=== PATIENT | male | born 1935 | race Caucasian/White ===

== ENCOUNTER 2018-07-29 09:04 | Emergency (ER) | payer MEDICARE ==
[2018-07-29 09:11] VITALS: RESP 18; TEMP 97.8
[2018-07-29] MEDS ORDERED: KETOROLAC 60 MG/2 ML VIAL IM STA (09:21)
[2018-07-29] MEDS ORDERED: HYDROmorphone 1 MG/ML 1 ML SYRINGE IM STA (09:21)
--- NOTE | 2018-07-29 09:25 | ED ---
General Adult HPI - General Chief complaint: Extremity Injury, Lower Stated complaint: R leg pain Source: patient, family, RN notes reviewed Mode of arrival: ambulatory Limitations: no limitations - History of Present Illness Initial comments: Patient is a pleasant 83-year-old male presenting to the emergency Department with complaints of right hip pain. Onset of symptoms was close to 2 weeks ago. Patient stepped on a stone. Patient had discomfort radiating up his leg. Discomfort became significantly worse 2 nights ago. Discomfort is mild at rest but severe with movement. Patient has difficulty walking. No weakness. No back pain. Discomfort is right lateral hip. No rash. No fevers. No history of similar symptoms previously. - Related Data Home Medications Medication Instructions Recorded Confirmed Atorvastatin [Lipitor] 40 mg PO DAILY 07/29/18 07/29/18 Cholecalciferol [Vitamin D3] 1,000 unit PO DAILY 07/29/18 07/29/18 Glimepiride [Amaryl] 1 mg PO AC-BRKFST 07/29/18 07/29/18 Insulin Glargine,Hum.rec.anlog 60 unit SQ HS 07/29/18 07/29/18 [Lantus Solostar] Liraglutide [Victoza 2-Rigoberto] 0.6 mg SQ DAILY 07/29/18 07/29/18 Lisinopril [Zestril] 20 mg PO DAILY 07/29/18 07/29/18 [place]-3 Fatty Acids/Fish Oil [Fish 1 cap PO DAILY 07/29/18 07/29/18 Oil 1,000 mg Softgel] Saw [place] 160 mg PO DAILY 07/29/18 07/29/18 predniSONE See Taper PO DAILY 07/29/18 07/29/18 Previous Rx's Medication Instructions Recorded Cyclobenzaprine [Flexeril] 10 mg PO TID PRN #12 tablet 07/29/18 Ibuprofen [Motrin] 600 mg PO Q6HR PRN #20 tab 07/29/18 Allergies Allergy/AdvReac Type Severity Reaction Status Date / Time No Known Allergies Allergy Verified 07/29/18 09:28 Review of Systems ROS Statement: Those systems with pertinent positive or pertinent negative responses have been documented in the HPI. ROS Other: All systems not noted in ROS Statement are negative. Constitutional: Denies: fever, chills Eyes: Denies: eye pain ENT: Denies: ear pain Respiratory: Denies: cough Cardiovascular: Denies: chest pain Endocrine: Denies: fatigue Gastrointestinal: Denies: abdominal pain Genitourinary: Denies: dysuria Musculoskeletal: Reports: arthralgia. Denies: back pain, joint swelling Skin: Denies: rash Neurological: Denies: weakness Past Medical History Past Medical History: Diabetes Mellitus, Hyperlipidemia, Hypertension History of Any Multi-Drug Resistant Organisms: None Reported Past Surgical History: Bowel Resection, Orthopedic Surgery Past Psychological History: No Psychological Hx Reported Smoking Status: Former smoker Past Alcohol Use History: None Reported Past Drug Use History: None Reported General Exam Limitations: no limitations General appearance: alert, in no apparent distress Head exam: Present: atraumatic Eye exam: Present: normal appearance, PERRL ENT exam: Present: normal oropharynx Neck exam: Present: normal inspection Respiratory exam: Present: normal lung sounds bilaterally Cardiovascular Exam: Present: regular rate, normal rhythm Expanded Peripheral pulses: 2+: Posterior Tibialis (R), Dorsalis Pedis (R) GI/Abdominal exam: Present: soft. Absent: tenderness Extremities exam: Present: normal inspection. Absent: tenderness, calf tenderness Right Hip exam: Present: full ROM (Passive range of motion without discomfort. Active range of motion is very limited by pain). Absent: tenderness, swelling, ecchymosis, deformity, erythema Knee exam: Present: normal inspection, full ROM. Absent: tenderness, swelling Lower Leg exam: Present: normal inspection Ankle exam: Present: normal inspection Foot/Toe exam: Present: normal inspection Back exam: Present: normal inspection. Absent: tenderness, vertebral tenderness Neurological exam: Present: alert. Absent: motor sensory deficit Psychiatric exam: Present: normal affect, normal mood Skin exam: Absent: rash Course Vital Signs 07/29/18 07/29/18 09:04 11:50 Temperature 97.8 F Pulse Rate 74 63 Respiratory 18 18 Rate Blood Pressure 163/84 137/65 O2 Sat by Pulse 94 L 94 L Oximetry Medical Decision Making - Radiology Data Radiology results: report reviewed (Ultrasound negative for DVT), image reviewed (X-ray of the right hip and pelvis shows no acute abnormality. There is some soft tissue edema anterior to the right patella) Disposition Clinical Impression: Hip strain Disposition: HOME SELF-CARE Condition: Stable Instructions: Hip Sprain (ED) Additional Instructions: Please follow-up with primary care physician and orthopedics in the next day or 2 for recheck. Return for fever, redness, swelling, increased pain, weakness, unable to walk, worsening or changing symptoms or other concerns. Prescriptions: Cyclobenzaprine [Flexeril] 10 mg PO TID PRN #12 tablet PRN Reason: Pain Ibuprofen [Motrin] 600 mg PO Q6HR PRN #20 tab PRN Reason: Pain Is patient prescribed a controlled substance at d/c from ED?: No Referrals: Aracelis Baez DO [Primary Care Provider] - 1-2 days Time of Disposition: 12:31
--- NOTE | 2018-07-29 10:22 | XR ---
EXAMINATION TYPE: XR femur RT DATE OF EXAM: 07/29/2018 COMPARISON: NONE HISTORY: Pain TECHNIQUE: 4 views submitted FINDINGS: There is a large soft tissue density anterior to the patella. Arthropathy of the hip joint. Vascular calcification seen. No definite acute fracture. Arthropathy of the knee joint. IMPRESSION: 1. Large area of soft tissue edema anterior to the patella correlate clinically. 2. No definite acute fracture.
--- NOTE | 2018-07-29 10:46 | XR ---
EXAMINATION TYPE: XR pelvis AP view DATE OF EXAM: 07/29/2018 CLINICAL HISTORY: Pain after injury. TECHNIQUE: A single AP view of the pelvis is obtained. COMPARISON: None. FINDINGS: There is no acute fracture/dislocation evident in the pelvis. There is moderate axial join t space loss in both hips with superior acetabular flattening and mild spurring. Sacroiliac joints a re maintained bilaterally. Vascular calcification of overlying pelvis is noted. IMPRESSION: There is no acute fracture or dislocation in the pelvis.
[2018-07-29] MEDS ORDERED: ORPHENADRINE 30 MG/ML 2 ML VIAL IM STA (11:01)
[2018-07-29 11:52] VITALS: BP 137/65; PULSE 63
--- NOTE | 2018-07-29 12:06 | US ---
EXAMINATION TYPE: US venous doppler duplex LE RT DATE OF EXAM: 07/29/2018 11:53 AM COMPARISON: NONE CLINICAL HISTORY: Pain. Right leg pain for 2 weeks that has gotten worse the last 2 days, patient zacarias ble to walk due to pain SIDE PERFORMED: Right TECHNIQUE: The lower extremity deep venous system is examined utilizing real time linear array sonog casa with graded compression, doppler sonography and color-flow sonography. VESSELS IMAGED: External Iliac Vein (EIV) Common Femoral Vein Deep Femoral Vein Greater Saphenous Vein * Femoral Vein Popliteal Vein Small Saphenous Vein * Proximal Calf Veins (* superficial vessels) Right Leg: No evidence of DVT as visualized Grayscale, color doppler, spectral doppler imaging performed of the deep veins of the right lower ext remity. There is normal flow, compressibility, vascular waveforms. IMPRESSION: No ultrasound evidence for acute DVT in the right lower extremity.
== END 2018-07-29 13:07 | disposition home or self-care (01) ==
LOC: EC 09:04
DX: S76.011A Strain of muscle, fascia and tendon of right hip, initial encounter (principal); M79.604 Pain in right leg; E11.9 Type 2 diabetes mellitus without complications; E78.5 Hyperlipidemia, unspecified; I10 Essential (primary) hypertension; Z87.891 Personal history of nicotine dependence; Z79.4 Long term (current) use of insulin; Z79.899 Other long term (current) drug therapy; Z79.52 Long term (current) use of systemic steroids
CPT/HCPCS: 99284 ×2; 96372 ×4; 72170; 73552; 93971; J2360; J1885; J1170

== ENCOUNTER → 2018-08-01 | Outpatient (CLI) | payer MEDICARE ==
--- NOTE | 2018-08-01 14:57 | CT ---
EXAMINATION TYPE: CT lumbar spine wo con DATE OF EXAM: 08/01/2018 COMPARISON: HISTORY: lower back pain/bilateral leg pain CT DLP: 1330.[address] of the lumbar spine was performed. Bone and soft tissue window settings are submitted as well as coronal and sagittal reconstructions. L1-L2: Vacuum disc noted. Circumferential disc bulge. Mild effacement ventral thecal sac. No herniati on or central stenosis. L2-L3: Vacuum disc noted. Circumferential disc bulge. Hypertrophy of the ligamentum flavum and facet joint arthropathy resulting in moderate central stenosis. No jennyfer disc herniation seen. Bilateral fo raminal encroachment. L3-L4: Vacuum disc noted. Circumferential disc bulge. Hypertrophy of the ligamentum flavum and facet joint arthropathy resulting in moderate central stenosis. No jennyfer disc herniation seen. Bilateral fo raminal encroachment. L4-L5: Vacuum disc noted. Circumferential disc bulge. Hypertrophy of the ligamentum flavum and facet joint arthropathy resulting in moderate central stenosis. No jennyfer disc herniation seen. Bilateral fo raminal encroachment. L5-S1: Circumferential disc bulge. Hypertrophy of the ligamentum flavum and facet joint arthropathy resulting in moderate central stenosis. No jennyfer disc herniation seen. Bilateral foraminal encroachme nt. No paraspinal masses are identified. Lumbar segments are free if fracture. IMPRESSION: 1. Multilevel central stenosis with multilevel vacuum disc is noted.
== END | disposition home or self-care (01) ==
LOC: RADCTMAIN 14:02
PROVIDERS: ATTEND Physical Medicine & Rehabilitation
DX: M48.062 Spinal stenosis, lumbar region with neurogenic claudication (principal); E11.9 Type 2 diabetes mellitus without complications; I10 Essential (primary) hypertension
CPT/HCPCS: 72131

== ENCOUNTER → 2018-10-03 | Outpatient (CLI) | payer MEDICARE ==
--- NOTE | 2018-10-03 11:49 | CT ---
EXAMINATION TYPE: CT angio abdomen DATE OF EXAM: 10/03/2018 COMPARISON: CT lumbar spine August 01, 2018. HISTORY: Aortic dissection. Abnormal MRI, 4.1 cm aneurysm per patient family. Right leg pain x [address] DLP: 1867.5 mGycm, Automated Exposure Control for Dose Reduction was Utilized. CONTRAST: CTA scan of the abdomen is performed without oral and without and with IV Contrast, patient injected with 100 mL of Isovue 370. Three-D reconstructed images are created on independent workstation and re viewed. FINDINGS: VASCULAR: The main pulmonary artery measures 3.3 cm at bifurcation, axial image 3, CT findings sugges ting underlying pulmonary artery hypertension. Adjacent ascending aorta measures up to 4.3 cm in diam eter same image. There is ectatic course with mild peripheral plaque in the descending thoracic aorta . There is patent celiac access, SMA, bilateral single renal arteries, and LUIS identified. There is p atency into the common iliac artery branches bilaterally with some ectasia of the distal left common iliac artery noted. There is aneurysmal change of the infrarenal abdominal aorta over roughly 6 cm se gment coronal image 25 measuring 3.9 x 4.0 cm transversely axial image 61 with prominent noncalcified plaque occupying left half of lumen. Stenosis roughly 50% is noted. Noncontrast images show subtle c urvilinear slightly hyperdense area axial image 62 along the left aspect consistent with small focal intramural hematoma. (Is slightly more chronic in age as Hounsfield units average 46 versus adjacent aorta measuring 42. There is moderate plaque through iliac branching without significant stenosis. LUNG BASES: Coronary artery calcification is present which is noted marker for coronary artery diseas e. Dependent atelectasis is seen in both bases. LIVER/GB: Dependent small calcified gallstones are seen in gallbladder. PANCREAS: Mild fat replaced atrophy of pancreas is seen. SPLEEN: No significant abnormality is seen. ADRENALS: No significant abnormality is seen. KIDNEYS: There is single nonobstructing 2 mm calculus lower pole left kidney coronal image 70 and 2-3 small calculi measuring 2 mm or smaller scattered throughout the right kidney. No hydronephrosis or obstructing ureter calculi are clearly seen bilaterally. Enlarged prostate gland bulges on bladder ba se, correlate for BPH BOWEL: Normal-appearing appendix is seen from cecum. No suspicious small or large bowel dilatation is present. LYMPH NODES: No greater than 1cm abdominal lymph nodes are appreciated. OSSEOUS STRUCTURES: Moderate multilevel spurring in the thoracic spine is present. OTHER: No significant additional abnormality is seen. 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 There is no evidence of aortic dissection but presence of small focal left lateral intramural hematoma is noted on noncontrast CT.
== END | disposition home or self-care (01) ==
LOC: RADCTMAIN 09:55
PROVIDERS: ATTEND Family Medicine
DX: I71.4 Abdominal aortic aneurysm, without rupture (principal); I70.0 Atherosclerosis of aorta
CPT/HCPCS: 82565; 84520; 74175; 36415; Q9967

== ENCOUNTER 2018-11-17 06:13 | Emergency (ER) | payer MEDICARE ==
[2018-11-17 06:24] VITALS: RESP 18
[2018-11-17] MEDS ORDERED: DEXTROSE 50%-WATER 50 ML SYRINGE IVP STA (06:40)
[2018-11-17 07:13] LABS: Glucose,Whole Blood 161 mg/dL (75-99)
[2018-11-17 07:13] LABS: Glucose,Whole Blood 38 mg/dL (75-99)
--- NOTE | 2018-11-17 07:31 | ED ---
General Adult HPI - General Chief complaint: Altered Mental Status Stated complaint: Hypoglycemia Source: patient, family, RN notes reviewed Mode of arrival: EMS Limitations: physical limitation - History of Present Illness Initial comments: Patient is a pleasant 83-year-old male presenting to the emergency Department with confusion. Patient did have blood sugar of 317 last night. Patient did take an extra dose of his new insulin. Patient states he is only taking this a couple times previously. This morning patient was acting abnormal. Patient was drowsy and had slurred speech. Patient also had some foot discomfort. Patient does have chronic leg discomfort the past several months which has previously been attributed to back problems and neuropathy. Patient was found to have blood sugar of 38. Patient was given an amp of D50 with resolution of symptoms. Patient feels symptom-free at this time. - Related Data Home Medications Medication Instructions Recorded Confirmed Atorvastatin [Lipitor] 40 mg PO DAILY 07/29/18 11/17/18 Glimepiride [Amaryl] 2 mg PO AC-SUPPER 07/29/18 11/17/18 Insulin Glargine,Hum.rec.anlog 64 unit SQ HS 07/29/18 11/17/18 [Lantus Solostar] Lisinopril [Zestril] 20 mg PO DAILY 07/29/18 11/17/18 Cholecalciferol [Vitamin D3] 400 unit PO DAILY 11/17/18 11/17/18 Fish Oil/Dha/Epa [Fish Oil 1,200 1 cap PO DAILY 11/17/18 11/17/18 mg Fish Oil] Liraglutide [Victoza 3-Rigoberto] 0.6 mg SQ DAILY PRN 11/17/18 11/17/18 [place] 500 mg PO DAILY 11/17/18 11/17/18 Allergies Allergy/AdvReac Type Severity Reaction Status Date / Time No Known Allergies Allergy Verified 11/17/18 06:36 Review of Systems ROS Statement: Those systems with pertinent positive or pertinent negative responses have been documented in the HPI. ROS Other: All systems not noted in ROS Statement are negative. Constitutional: Denies: fever Eyes: Denies: eye pain ENT: Denies: ear pain Respiratory: Denies: cough Cardiovascular: Denies: chest pain Endocrine: Denies: fatigue Gastrointestinal: Denies: abdominal pain Genitourinary: Denies: dysuria Musculoskeletal: Denies: back pain (Patient has no back pain. Patient has leg pain that is attributed to his back) Skin: Denies: rash Neurological: Reports: as per HPI Past Medical History Past Medical History: Diabetes Mellitus, Hyperlipidemia, Hypertension History of Any Multi-Drug Resistant Organisms: None Reported Past Surgical History: Bowel Resection, Orthopedic Surgery Past Psychological History: No Psychological Hx Reported Smoking Status: Former smoker Past Alcohol Use History: None Reported Past Drug Use History: None Reported General Exam Limitations: no limitations General appearance: alert, in no apparent distress Head exam: Present: atraumatic Eye exam: Present: normal appearance, PERRL, EOMI ENT exam: Present: normal oropharynx Neck exam: Present: normal inspection Respiratory exam: Present: normal lung sounds bilaterally Cardiovascular Exam: Present: regular rate, normal rhythm GI/Abdominal exam: Present: soft. Absent: tenderness Extremities exam: Present: normal inspection. Absent: pedal edema, calf tenderness Neurological exam: Present: alert, CN II-XII intact. Absent: motor sensory deficit Expanded Neurological exam: Present: protecting the airway Patient oriented to: Present: person, place, time (Patient is oriented to month but not year) Speech: Present: fluid speech Cranial nerves: EOM's Intact: Normal Motor strength exam: RUE: 5, LUE: 5, RLE: 5, LLE: 5 Psychiatric exam: Present: normal affect, normal mood Skin exam: Present: normal color Course Vital Signs 11/17/18 11/17/18 06:17 06:42 Temperature 98.0 F Pulse Rate 81 66 Respiratory 18 18 Rate Blood Pressure 140/90 142/86 O2 Sat by Pulse 92 L 97 Oximetry EKG Findings - EKG Comments: EKG Findings:: Normal sinus rhythm 80. OK 162. QRS 88. QT 398. QTC 459. Normal axis. Normal QRS. No acute ST change. Medical Decision Making - Medical Decision Making Patient requesting discharge. Patient remains alert and appropriate. Family members 3 are present and all feel that patient is acting normal. Patient is advised to follow-up with his doctor as soon as possible regarding insulin dosing. Patient is advised to discontinue his new Medication and decrease his Lantus evening dose by 10. - Lab Data Lab Results 11/17/18 11/17/18 Range/Units 06:15 06:29 POC Glucose (mg/dL) 38 L 161 H (75-99) mg/dL POC Glu Insulation Cupola Operator ID Milena Carnes Alisha Disposition Clinical Impression: Hypoglycemia Disposition: HOME SELF-CARE Condition: Stable Instructions: Hypoglycemia in a Person with Diabetes (ED) Additional Instructions: Please follow-up with your doctor in the next day or 2 for recheck and further advising. Please discontinue your new insulin. Decrease evening dose of Lantus by 10 until further advised by your primary care doctor. Return for weakness, confusion, uncontrolled blood sugar, worsening or changing symptoms or other concerns. Is patient prescribed a controlled substance at d/c from ED?: No Referrals: Aracelis Baez DO [Primary Care Provider] - 1-2 days Time of Disposition: 08:42
[2018-11-17 09:46] VITALS: BP 110/79; PULSE 82; TEMP 97.9
[2018-11-17 16:42] LABS: Glucose,Whole Blood 101 mg/dL (75-99)
== END 2018-11-17 10:15 | disposition home or self-care (01) ==
LOC: EC 06:13
DX: E11.649 Type 2 diabetes mellitus with hypoglycemia without coma (principal); E78.5 Hyperlipidemia, unspecified; I10 Essential (primary) hypertension; Z79.4 Long term (current) use of insulin; Z79.899 Other long term (current) drug therapy; Z87.891 Personal history of nicotine dependence
CPT/HCPCS: 36415; 96374; 99285

== ENCOUNTER 2022-10-19 14:59 | Emergency (ER) | payer MEDICARE ==
[2022-10-19 15:12] VITALS: RESP 18
[2022-10-19] MEDS ORDERED: DIPH,PERTUS(ACELL)TETVAC-LF 0.5 ML VIAL IM ONE (15:20)
--- NOTE | 2022-10-19 15:28 | ED ---
Fall HPI - General Source: patient, RN notes reviewed Mode of arrival: wheelchair Limitations: no limitations <Pato Edwards - Last Filed: 10/19/22 15:27> <Kourtney Choudhury - Last Filed: 10/19/22 19:54> - General Chief Complaint: Fall Stated Complaint: Fall on thinners Time Seen by Provider: 10/19/22 15:15 - History of Present Illness Initial Comments: This is an 87-year-old male presents emergency Department with chief complaint of trip and fall. Patient states he lost his balance and stepped states that he did strike his face he did not fall down the steps. Patient states he does not take any blood thinners. Patient complains of facial abrasions, lacerations on the right and left cheek is unsure when his last tetanus was. He denies any blood thinners denies any significant headache as mild facial pain. Denies any upper or lower extremity injury or trauma noted. (Pato Edwards) - Related Data Home Medications Medication Instructions Recorded Confirmed Atorvastatin [Lipitor] 40 mg PO DAILY 07/29/18 11/17/18 Glimepiride [Amaryl] 2 mg PO AC-SUPPER 07/29/18 11/17/18 Insulin Glargine,Hum.rec.anlog 64 unit SQ HS 07/29/18 11/17/18 [Lantus Solostar] lisinopriL [Zestril] 20 mg PO DAILY 07/29/18 11/17/18 Cholecalciferol [Vitamin D3] 400 unit PO DAILY 11/17/18 11/17/18 Fish Oil/Dha/Epa [Fish Oil 1,200 1 cap PO DAILY 11/17/18 11/17/18 mg Fish Oil] Liraglutide [Victoza 3-Rigoberto] 0.6 mg SQ DAILY PRN 11/17/18 11/17/18 Saw [place] 500 mg PO DAILY 11/17/18 11/17/18 Allergies Allergy/AdvReac Type Severity Reaction Status Date / Time No Known Allergies Allergy Verified 10/19/22 15:12 Review of Systems ROS Other: All systems not noted in ROS Statement are negative. <Pato Edwards - Last Filed: 10/19/22 15:27> ROS Other: All systems not noted in ROS Statement are negative. <Kourtney Choudhury - Last Filed: 10/19/22 19:54> ROS Statement: Those systems with pertinent positive or pertinent negative responses have been documented in the HPI. Past Medical History Past Medical History: Diabetes Mellitus, Hyperlipidemia, Hypertension History of Any Multi-Drug Resistant Organisms: None Reported Past Surgical History: Bowel Resection, Orthopedic Surgery Past Psychological History: No Psychological Hx Reported Past Alcohol Use History: None Reported Past Drug Use History: None Reported <Pato Edwards - Last Filed: 10/19/22 15:27> General Exam Limitations: no limitations General appearance: alert, in no apparent distress Head exam: Present: atraumatic, normocephalic, normal inspection Eye exam: Present: normal appearance, PERRL, EOMI. Absent: scleral icterus, conjunctival injection, periorbital swelling ENT exam: Present: normal oropharynx, mucous membranes moist, TM's normal bilaterally, normal external ear exam, other (Right and left facial abrasion/lacerations). Absent: normal exam Neck exam: Present: normal inspection, full ROM. Absent: tenderness, meningismus, lymphadenopathy Respiratory exam: Present: normal lung sounds bilaterally. Absent: respiratory distress, wheezes, rales, rhonchi, stridor Cardiovascular Exam: Present: normal rhythm, tachycardia, normal heart sounds. Absent: systolic murmur, diastolic murmur, rubs, gallop, clicks GI/Abdominal exam: Present: soft, normal bowel sounds. Absent: distended, tenderness, guarding, rebound, rigid Neurological exam: Present: alert, oriented X3, CN II-XII intact, reflexes normal. Absent: motor sensory deficit <Pato Edwards - Last Filed: 10/19/22 15:27> Course Vital Signs 10/19/22 10/19/22 15:07 18:31 Temperature 97.6 F 97.8 F Pulse Rate 102 H 82 Respiratory 18 18 Rate Blood Pressure 134/86 133/74 O2 Sat by Pulse 93 L 94 L Oximetry Procedures - Laceration Laceration #1 Consent Obtained: verbal consent Indication: laceration Site: face Size (cm): 2 Description: irregular Anesthetic Used: lidocaine 1% Anesthesia Technique: local infiltration Pre-repair: wound explored, irrigated extensively Type of Sutures: nylon Size of Sutures: 5-0 Number of Sutures: 2 Technique: simple, interrupted Patient Tolerated Procedure: well, no complications Laceration #2 Consent Obtained: verbal consent Indication: laceration Site: face Size (cm): 2 Description: irregular Anesthetic Used: lidocaine 1% Anesthesia Technique: local infiltration Pre-repair: wound explored, irrigated extensively Type of Sutures: nylon Size of Sutures: 5-0 Number of Sutures: 2 Technique: simple, interrupted Patient Tolerated Procedure: well, no complications <MaceyKourtney - Last Filed: 10/19/22 19:54> Medical Decision Making <MaceyKourtney - Last Filed: 10/19/22 19:54> - Medical Decision Making This is an 87-year-old male presenting after fall. Patient asymptomatic, takes a baby aspirin otherwise no blood thinner use. CT of the brain and C-spine without contrast was obtained which shows no acute intracranial process and no evidence of cervical spine fracture. CT of the facial bones without contrast obtained and interpreted by me which shows small ride sided periorbital hematoma, no evidence of fracture. Lacerations were cleaned thoroughly well approximated with sutures, performed by me. Patient tolerated procedure well. Tetanus updated. Wound education provided in detail to patient and his family. Patient to return in 5 days for suture removal. Dr. George is my attending. (Kourtney Choudhury) Disposition <Pato Edwards - Last Filed: 10/19/22 15:27> Is patient prescribed a controlled substance at d/c from ED?: No Time of Disposition: 17:08 <Kourtney Choudhury - Last Filed: 10/19/22 19:54> Clinical Impression: Fall, Hematoma, Laceration Disposition: HOME SELF-CARE Condition: Good Instructions (If sedation given, give patient instructions): Care For Your Stitches (ED), Laceration (ED), Fall Prevention for Older Adults (ED), Hematoma (ED) Additional Instructions: Take Tylenol for any pain. Avoid anti-inflammatories for the next 48 hours. Apply cold compress to swelling. Keep wounds clean and dry. Follow-up with primary care provider in one to 2 days. Return for suture removal in 5 days. Return to the emergency department if you experience new, concerning, or worsening symptoms. Referrals: Gael Garza MD [Primary Care Provider] - 1-2 days
--- NOTE | 2022-10-19 16:53 | CT ---
EXAMINATION TYPE: CT brain cspine wo con, CT facial bones wo con CT DLP: 1255.3 mGycm, Automated exposure control for dose reduction was used. DATE OF EXAM: 10/19/2022 4:29 PM COMPARISON: None. CLINICAL INDICATION:Male, 87 years old with history of fall; Fall, facial trauma TECHNIQUE: Brain: Multiple axial CT images of the brain were obtained without IV contrast. Cspine: Axial CT images from the skull base to the inferior aspect of T2 we obtained without intraven ous contrast. Coronal and sagittal reformatted images were also reviewed. Facial: Multiple unenhanced axial CT images were obtained of the facial bones soft tissue and bone wi ndows. Coronal, axial and sagittal reformatted images were also provided in soft tissue and bone win dows and submitted for interpretation. Additional 3-D reformatted images were obtained on a separate workstation. FINDINGS: Brain: Extra-axial spaces: No abnormal extra-axial fluid collections. Ventricular system: Dilatation in proportion to cerebral atrophy. Cerebral parenchyma: Cerebral atrophy. No acute intraparenchymal hemorrhage or mass effect. The ames -white junction is well differentiated. Scattered hypoattenuating areas are seen within the white mat ter. Cerebellum: Unremarkable. Mass effect: No evidence of midline shift. Intracranial vasculature: Atherosclerotic calcifications of the intracranial vessels. Calvarium/osseous structures: No depressed skull fracture. Paranasal sinuses and mastoid air cells: Mild scattered mucosal thickening and or secretions. Visualized orbits: Orbital contents are intact. Cervical spine: Fracture: None. Osseous structures: Multilevel degenerative disc disease changes with endplate spurring and disc oste ophyte complex's. Vertebral alignment: Within normal limits. Spinal canal/Neural Foramina: No evidence of significant spinal canal narrowing. No evidence for sign ificant neural foraminal stenosis. Neck soft tissues: Prevertebral soft tissues are within normal limits. Other: The airway is patent. The lung apices are clear. Facial: Right periorbital soft tissue edema with small hematoma measuring 3.4 x 0.6 cm. Left cheek subcutaneo us edema. There is no evidence of fracture, subluxation, or dislocation. The orbital contents are unremarkable. The temporal-mandibular joints appear symmetric. The visualized portion of the paranasal sinuses appe ar clear. IMPRESSION: 1. No acute intracranial process. 2. Nonspecific white matter changes, likely secondary to chronic small vessel ischemic disease. 3. No evidence of cervical spine fracture. 4. Mild multilevel degenerative disc disease. 5. Periorbital edema possible small hematoma around on the right. No evidence of fracture.
[2022-10-19] MEDS ORDERED: TOPICAL SKIN ADHESIVE 1 EACH AMP TOPICAL STA (16:59)
[2022-10-19] MEDS ORDERED: LIDOCAINE 1% INJ 10MG/ML (30 ML VIAL-PF) SQ STA (17:12)
[2022-10-19 18:33] VITALS: BP 133/74; PULSE 82; TEMP 97.8
== END 2022-10-19 18:33 | disposition home or self-care (01) ==
LOC: EC 14:59
DX: S01.81XA Laceration without foreign body of other part of head, initial encounter (principal); I10 Essential (primary) hypertension; E11.9 Type 2 diabetes mellitus without complications; E78.5 Hyperlipidemia, unspecified; Z79.4 Long term (current) use of insulin; Z79.899 Other long term (current) drug therapy; Z23 Encounter for immunization; Z79.84 Long term (current) use of oral hypoglycemic drugs; W01.0XXA Fall on same level from slipping, tripping and stumbling without subsequent striking against object, initial encounter
CPT/HCPCS: 12013; 99284; 90471; 72125; 70486; 70450; 90715; J2001